=== PATIENT | female | born 1990 | race Caucasian/White ===

== ENCOUNTER 2024-01-17 12:03 | Outpatient (CLI) | payer BC, SELFPAY ==
--- NOTE | 2024-01-17 12:15 | CRLHL7_ITS ---
For Patients: As a result of the Cures Act, medical imaging exams and procedure reports are released immediately into your electronic medical record. You may view this report before your referring provider. If you have questions, please contact your health care provider. INDICATION: First trimester scan, establish dates. COMPARISON: None. TECHNIQUE: Real-time shaikh-scale imaging of the pelvis was performed. FINDINGS: Sonographic imaging demonstrates a single living intrauterine gestation. The embryo demonstrates a regular cardiac rate measuring 180 beats per minute. The embryo`s crown-rump length measurement of 1.6 cm corresponds to a gestational age of 8 weeks 0 days with a sonographic due date of 08/28/2024. There is a normal-appearing yolk sac. There are no gross abnormalities noted within the embryo at this early state of development. The gestational sac has a normal appearance. There is no evidence of a perigestational hemorrhage. The amount of fluid within the sac appears appropriate for gestational age. The cervix is closed. The myometrium appears normal. The ovaries are of normal size. Corpus luteal cyst right ovary. There are no suspicious fluid collections noted in the cul-de-sac. IMPRESSION: Normal first trimester OB ultrasound exam. Gestational age calculated at 8 weeks 0 day with a sonographic due date of 08/28/2024. Dictated by Mickey Biggs MD @ 01/19/2024 7:17:01 PM (Electronically Signed)
== END 2024-01-17 12:04 | disposition home or self-care (01) ==
LOC: US 12:06
PROVIDERS: Visit Provider Physician Assistant
DX: Z34.91 Encounter for supervision of normal pregnancy, unspecified, first trimester (principal); Z3A.08 8 weeks gestation of pregnancy
CPT/HCPCS: 76817; 86592; 86703; 86704; 86706; 86762; 86787; 86803; 86850; 86900; 86901; 87086; 87340; 87491; 87591

== ENCOUNTER 2024-01-17 13:08 | Outpatient (CLI) | payer BC, SELFPAY ==
[2024-01-17 19:37] LABS: Chlamydia DNA Amplified* NOT DETECTED (No Detected); GC DNA Amplified* NOT DETECTED (No Detected)
== END 2024-01-17 13:09 | disposition home or self-care (01) ==
PROVIDERS: Visit Provider Physician Assistant
DX: Z34.91 Encounter for supervision of normal pregnancy, unspecified, first trimester (principal); Z3A.08 8 weeks gestation of pregnancy
CPT/HCPCS: 86592; 86703; 86704; 86706; 86762; 86787; 86803; 86850; 86900; 86901; 87086; 87340; 87491; 87591

== ENCOUNTER 2024-04-11 12:07 | Outpatient (CLI) | payer BC, SELFPAY ==
--- NOTE | 2024-04-11 12:15 | CRLHL7_ITS ---
For Patients: As a result of the Century Cures Act, medical imaging exams and procedure reports are released immediately into your electronic medical record. You may view this report before your referring provider. If you have questions, please contact your health care provider. INDICATION: Evaluate anatomy. COMPARISON: 01/17/2024 TECHNIQUE: Real time shaikh scale imaging of the fetus was performed as well as color Doppler analysis of the umbilical vessels. FINDINGS: Sonographic imaging demonstrates a single living intrauterine gestation. Fetus demonstrates a regular cardiac rate of 147 beats per minute. Fetus has a variable position. The placenta lies posteriorly without evidence of placenta previa. Edge of the placenta located 4.0 cm from the internal cervical os. Amniotic fluid volume appears normal. Single deepest vertical pocket: 4.5 cm. The cervix is closed and measures 3.6 cm in length. The composite ultrasound gestational age is calculated at 20 weeks 6 days with an estimated sonographic due date of 08/23/2024. The estimated weight is 397 grams which lies at the 73rd %. The following biometric measurements were obtained: Biparietal diameter: 4.8 cm/20 weeks 4 days 52nd% Head circumference: 18.0 cm/20 weeks 3 days 36th% Abdominal circumference: 16.1 cm/21 weeks 1 day 65th% Femur length: 3.5 cm/21 weeks 1 day 61st% The HC/AC ratio measures: 1.12 range (1.06-1.25) On anatomic survey, there is a normal appearance of the cerebral ventricles, cavum septi pellucidi, cisterna magna and cerebellum. The nose, lips, and facial profile appear normal. The cervical, thoracic and lumbar spine are well visualized and appear normal. There is a normal four-chamber heart view and the left and right ventricular outflow tracts appear normal. The diaphragm and stomach appear normal. Bilateral renal pelviectasis measures 4 millimeters on the right and 2.6 millimeters on the left. Normal bladder. There is a normal three-vessel cord and cord insertion site. The four extremities appear normal. IMPRESSION: Concordance of clinical and sonographic dating. Right renal pelvis measures 4 millimeters. Left renal pelvis measures 2.6 millimeters. Follow-up 3rd trimester regarding the right renal pelvis recommended. Remainder of the anatomic survey normal. Dictated by Mickey Biggs MD @ 04/13/2024 10:27:01 PM (Electronically Signed)
== END 2024-04-11 12:08 | disposition home or self-care (01) ==
LOC: US 12:08
PROVIDERS: Visit Provider Registered Nurse
DX: Z34.92 Encounter for supervision of normal pregnancy, unspecified, second trimester (principal); Z3A.20 20 weeks gestation of pregnancy
CPT/HCPCS: 76805

== ENCOUNTER 2024-06-02 09:15 | Outpatient (CLI) | payer BC, SELFPAY | END 2024-06-02 09:16 | disposition home or self-care (01) | LOC: NFLDREF 06-04 09:56 | PROVIDERS: Visit Provider Obstetrics & Gynecology | DX: Z34.93 Encounter for supervision of normal pregnancy, unspecified, third trimester (principal); Z3A.28 28 weeks gestation of pregnancy | CPT/HCPCS: 86592 ==

== ENCOUNTER 2024-07-04 10:12 | Outpatient (CLI) | payer BC, SELFPAY ==
--- NOTE | 2024-07-04 10:15 | CRLHL7_ITS ---
For Patients: As a result of the Century Cures Act, medical imaging exams and procedure reports are released immediately into your electronic medical record. You may view this report before your referring provider. If you have questions, please contact your health care provider. INDICATION: Third trimester scan, evaluate growth. Follow-up pelviectasis. COMPARISON: 04/11/2024 TECHNIQUE: Real time shaikh scale imaging of the fetus was performed. FINDINGS: Sonographic imaging demonstrates a single living intrauterine gestation. Fetus demonstrates a regular cardiac rate of 152 beats per minute. Fetus has a vertex position. The placenta lies posteriorly. Amniotic fluid volume appears normal and there is a single deepest vertical pocket: 4.6 cm. The estimated weight is 2289gm which lies at the 80th %. On the prior OB ultrasound exam dated 04/11/2024 the estimated weight was at the 73rd%. BPD 92nd percentile. HC 87th percentile. AC 83rd percentile. FL 50th percentile. The HC/AC ratio measures 1.06 range (0.94-1.11). The right renal pelvis measures 6.8 millimeters. The left renal pelvis measures 7.2 millimeters. Sonographic gestational age 34 weeks 2 days and a sonographic due date of 08/13/2024. Sonographic ages 12 days ahead of the clinical age. IMPRESSION: Bilateral pelviectasis measuring up to 7.2 millimeters. Normal is considered less than 7 millimeters. follow-up recommended. Dictated by Mickey Biggs MD @ 07/04/2024 12:12:13 PM (Electronically Signed)
== END 2024-07-04 10:13 | disposition home or self-care (01) ==
LOC: US 10:13
PROVIDERS: Visit Provider Obstetrics & Gynecology
DX: O35.EXX0 Maternal care for other (suspected) fetal abnormality and damage, fetal genitourinary anomalies, not applicable or unspecified (principal); O36.63X0 Maternal care for excessive fetal growth, third trimester, not applicable or unspecified; Z3A.34 34 weeks gestation of pregnancy
CPT/HCPCS: 76816

== ENCOUNTER 2024-08-01 09:40 | Outpatient (CLI) | payer BC, SELFPAY ==
[2024-08-02 13:08] LABS: Strep B DNA Probe Negative (Negative)
[2024-08-02 13:22] LABS: Strep B Susceptibility Needed? No
== END 2024-08-01 09:41 | disposition home or self-care (01) ==
LOC: NFLDREF 09:40
PROVIDERS: Visit Provider Obstetrics & Gynecology
DX: Z34.93 Encounter for supervision of normal pregnancy, unspecified, third trimester (principal); Z3A.36 36 weeks gestation of pregnancy
CPT/HCPCS: 87081; 87653

== ENCOUNTER 2024-08-28 15:53 | Inpatient (IN) | payer BC, SELFPAY ==
[2024-08-28] VITALS (7 sets, daily range): BP systolic 121–137; BP diastolic 73–88; PULSE 65–86; RESP 16; TEMP 36.5–36.9; O2SAT 97–98; BMI 36.8
--- NOTE | 2024-08-28 16:51 | W.PM.LDBA ---
Subjective History of Present Illness Date Seen: 08/28/24 Narrative: Patient is being admitted to Labor and Delivery for elective IOL. She is a 34 year old at 40 3/7 weeks gestation. Her full history and physical was dictated by Dr. Rodríguez on 08/07/24. Please see this for details. Today patient states to be doing well w/o any new concerns or complaints. Specific Issues/Plans : Eric Baby boy: Masood?? [id number]: negative #Mild pyelectasis - Right Renal Pelvis 4 mm on FAS - 32 week repeat: Left renal pelvis mildly dilated at 7.2mm (7 is normal) and 6.8mm on R - assessment recommended Flu: declined Covid: declined Tdap: 06/20/24 RSV:07/18/24 GBS: negative 08/01/24 H&P: Anne 08/07 OB - Problem Based A/P Additional Plan (1) and not yet delivered: Status: Acute Plan 1. IOL started with placement of first dose of vaginal Cytotec. Will continue management per protocol. 2. Continuous monitoring. 3. GBS negative, no need for antibiotic prophylaxis. 4. Candidate for pain management as needed. 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
[2024-08-28] MEDS: miSOPROStoL 25 MCG/0.25 TABLET VAGINAL ×3 (17:00→23:28)
[2024-08-28 17:20] LABS: Basophils Absolute Auto 0.03 K/uL (0.00-0.30); Basophils Percent Auto 0.3 % (0.0-3.0); Eosinophils Absolute Auto 0.11 K/uL (0.00-0.50); Hematocrit 41.2 % (33.0-51.0); Hemoglobin* 13.8 gm/dL (12.0-16.0); Immature Granulocytes Abs Auto 0.02 K/uL (0.00-0.30); Immature Granulocytes Pct Auto 0.2 %; Lymphocytes Percent Auto 17.4 % (20-44); Mean Corpuscular HGB Conc 34 gm/dL (32-36); Mean Corpuscular Hemoglobin 31 pg (26-34); Mean Corpuscular Volume 93 fL (80-100); Monocytes Percent Auto 10.6 % (0.0-11.0); Neutrophils Absolute Auto 7.41 K/uL (1.7-7.0); Neutrophils Percent Auto 70.5 % (42.0-72.0); Platelet Count* 259 K/uL (140-440); RDW Coefficient of Variation % 12.4 % (11.5-15.5); Red Blood Count 4.45 m/uL (4.00-5.20); White Blood Count* 10.51 K/uL (4.50-11.00)
[2024-08-28 17:22] LABS: Slide Review Reflex No
[2024-08-29] VITALS (91 sets, daily range): BP systolic 110–149; BP diastolic 57–98; PULSE 60–110; RESP 16–20; TEMP 36.4–37.1; O2SAT 92–100
[2024-08-29] MEDS: LACTATED RINGERS 500 ML 500 ML IV (01:01)
[2024-08-29] MEDS: TERBUTALINE 1 MG/ML INJ 0.25 MG SUBCUT ×2 (01:47→04:21)
[2024-08-29] MEDS: LACTATED RINGERS 500 ML 500 ML 1000 ML IV (01:54)
[2024-08-29] MEDS: LACTATED RINGERS 1000 ML 1,000 ML 250 ML IV (03:53)
[2024-08-29] MEDS: LACTATED RINGERS 1000 ML 1,000 ML 125 ML IV (06:07)
[2024-08-29] MEDS: OXYTOCIN 30 unit/500 ML in NS 30 UNIT/500 ML BAG IVPB (07:35)
--- NOTE | 2024-08-29 09:17 | PM.OBPNL ---
Subjective Time Seen by Provider: 08:15 Date Seen: 08/29/24 Narrative: S: Feeling some contractions with the Pitocin at 2 milliunits /minute. Verbal consent obtained for AROM and placement of scalp electrode and intrauterine pressure catheter. The patient received 3 doses of Cytotec and then had tachy systole with some heart rate late decelerations which was treated with 2 doses of terbutaline. Since the 2 doses of terbutaline the heart monitor tracing has reverted to category 1 and contractions decreased to every 4-6 minutes. Pitocin was started at 2 milliunits/minute at approximately 7:30 a.m. there were 3 late -appearing heart rate decelerations at around 8:00 a.m. which resolved spontaneously. Reviewed that if late decelerations became persistent/recurrent then I would recommend a delivery. The patient and her spouse, Eric stated their understanding and questions answered. Objective Exam: General: Pleasant, , well groomed woman in no acute distress. Vital signs: Included in her electronic medical record. External monitor: Baseline 130s. Accelerations: Present. Decelerations 1 variable deceleration lasting 1 minute at approximately 9:00 a.m. and 3 late-appearing decelerations at approximately 8:00 a.m. scalp electrode placed with acceleration in the heart rate to greater than 150 beats per minute with placement of the FSE. [place]: Q 2 minutes. IUPC Placed. Extremities: 2+ edema. 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 Plan Plan: 1. if decelerations become recurrent/persistent. 2. IUPC and FSE place. 3. Pitocin off after variable deceleration.
[2024-08-29] MEDS: ONDANSETRON 2 MG/ML inj 4 MG IV (09:27)
--- NOTE | 2024-08-29 09:35 | PM.OBPNL ---
Subjective Time Seen by Provider: 09:35 Date Seen: 08/29/24 Narrative: Subjective: The patient is uncomfortable with contractions, requesting an epidural and reporting significant increase in rectal pressure. Pitocin turned off 9:00 a.m. due to a deep variable deceleration to the 90s for 1 minute. Vital signs: Per electronic medical record. EFM: Baseline 130s, positive accelerations, 1 early deceleration at 9:33 a.m., moderate variability, reactive. Category 2. IUPC: Contractions every 2-4 minutes > 180 Broxton units in 10 minutes. SVE: 4 cm/80 %/-2. Assessment: 34-year-old 1 para 0 at 40 weeks 4 days gestation undergoing elective induction of labor. Plan: 1. Restart Pitocin 1 milliunits/minute after the epidural is placed and the heart rate remains reassuring. 2. Getting epidural currently for labor analgesia. 3. GBS negative 4. Blood type: O positive, antibody screen negative. Objective Vital Signs: Last Vital Signs Temp 97.6 F 08/29/24 07:29 Pulse 78 08/29/24 08:21 Resp 16 08/29/24 07:29 BP 120/70 08/29/24 08:21 Pulse Ox 98 08/29/24 09:10 Pelvic Exam Dilation (cm): 4 Effacement (%): 70 Station: -2 Assessment Station: -2 Amniotic Membrane Status: AROM Status: Category ll Heart Rate Baseline: 135 Monitor Accelerations: Present Monitor Decelerations: Late
[2024-08-29] MEDS: LIDOCAINE 2% (PF) 5 ML VIAL EPIDURAL (09:36)
[2024-08-29] MEDS: ROPIVACAINE 0.2% 100 ml 100 ML 12 MG EPIDURAL (10:25)
[2024-08-29 10:56] LABS: Hematocrit 38.6 % (33.0-51.0); Hemoglobin* 12.9 gm/dL (12.0-16.0); Mean Corpuscular HGB Conc 33 gm/dL (32-36); Mean Corpuscular Hemoglobin 32 pg (26-34); Mean Corpuscular Volume 94 fL (80-100); Platelet Count* 228 K/uL (140-440); White Blood Count* 11.55 K/uL (4.50-11.00)
[2024-08-29 10:59] LABS: Slide Review Reflex No
--- NOTE | 2024-08-29 11:03 | PM.ANBPRC ---
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 Marital status: . Sikhism/cultural needs: no. Chemical or radiation exposure: no. Pre- tobacco use: no. Pre- alcohol use: 1-2 drinks per week. Current tobacco use: no. Current alcohol use: no. Recreational drug use: no. Dietary restrictions: no. Blood transfusion acceptable in an emergency: yes. PSYCHOSOCIAL HISTORY: History of depression or currently depressed: no. Current or past physical, emotional, or sexual mistreatment: no. Problems that will make it hard to make it to appointments: no. What is your current living situation?: I presently have a place to live Problems where you live: no known problems In the past 12 months, utilities in danger of being shut off: no In past 12 months, lack of transportation kept you from medical appts, meetings, work, or getting things needed for daily living: no In the past 12 mos, have been you worried that your food would run out before you had money to buy more?: never true In the past 12 mos, the food you bought just didn't last and you didn't have money to buy more?: never true Smoking Status: Never smoker How often does anyone, including family, friends and others, physically hurt you: never How often does anyone, including family, friends and others, insult or talk down to you: never How often does anyone, including family, friends and others, threaten you with harm: never How often does anyone, including family, friends and others, scream or curse at you: never Meds Home Medications and Allergies Home Medications ?Medication ?Instructions ?Recorded ?Confirmed ?Type SNT-tmus-SI-omega 3-fat com #1 27 1 cap PO DAILY 01/17/24 08/28/24 History mg-1 mg-300 mg capsule Allergies Allergy/AdvReac Type Severity Reaction Status Date / Time No Known Drug Allergies Allergy Verified 08/26/24 09:03 Results Labs Labs: Laboratory Results - last 24 hr 08/28/24 08/29/24 17:13 10:43 WBC 10.51 11.55 H RBC 4.45 4.10 Hgb 13.8 12.9 Hct 41.2 38.6 MCV 93 94 MCH 31 32 MCHC 34 33 RDW Coeff of Cristina 12.4 Plt Count 259 228 Neut % (Auto) 70.5 Lymph % (Auto) 17.4 L [place] % (Auto) 10.6 Eos % (Auto) 1.0 Baso % (Auto) 0.3 Neut # (Auto) 7.41 H Lymph # (Auto) 1.80 [place] # (Auto) 1.10 H Eos # (Auto) 0.11 Baso # (Auto) 0.03 Abs Immat Gran (auto) 0.02 Imm/Tot Granulo (auto) 0.2 Blood Type O Positive Antibody Screen NEGATIVE Vital Signs Vital Signs: Last Vital Signs Temp 98 F 08/29/24 10:43 Pulse 77 08/29/24 10:57 Resp 18 08/29/24 10:43 BP 116/62 08/29/24 10:57 Pulse Ox 99 08/29/24 11:00 Weight: 97.211 kg Height: 162.56 cm Anesthesia Procedures Epidural Insertion Patient Location: OB Start Time: 09:30 Stop Time: 10:30 Start Date: 08/29/24 Stop Date: 08/29/24 Reason for Block: procedure for pain Patient Position: sitting Performed By: Torie Pabon Preanesthetic Checklist: IV checked, site marked, risks and benefits discussed, monitors and equipment checked, pre-op evaluation, timeout performed and anesthesia consent Prep: chlorhexidine gluconate Monitoring: blood pressure monitoring, continuous pulse oximetry and heart rate Approach: midline Vertebral Space: lumbar (1-5) Epidural Technique: KYLIE saline Needle Type: Tuohy needle Needle gauge: 17 Needle Length (cm): 10 cm Needle Insertion Depth (cm): 7 Catheter Gauge: 19 Catheter Type: multi-orifice Catheter at skin depth (cm): 17 Test Dose Result: negative and lidocaine 1.5% with epinephrine 1 to 200,000
[2024-08-29 11:06] LABS: Aspartate Amino Transferase* 17 U/L (12-35); Creatinine* 0.6 mg/dL (0.5-1.5); Est. Creatinine Clearance* 116.24; Estimated Glomerular Filt Rate 122 ml/min
[2024-08-29 11:07] LABS: Alanine Aminotransferase* 18 U/L (4-35); Blood Urea Nitrogen* 7 mg/dL (5-24)
[2024-08-29 11:09] LABS: Basophils Absolute Auto 0.03 K/uL (0.00-0.30); Basophils Percent Auto 0.3 % (0.0-3.0); Eosinophils Absolute Auto 0.02 K/uL (0.00-0.50); Eosinophils Percent Auto 0.2 % (0.0-7.0); Immature Granulocytes Abs Auto 0.03 K/uL (0.00-0.30); Immature Granulocytes Pct Auto 0.3 %; Lymphocytes Percent Auto 10.8 % (20-44); Monocytes Percent Auto 8.7 % (0.0-11.0); Neutrophils Percent Auto 79.7 % (42.0-72.0); RDW Coefficient of Variation % 12.4 % (11.5-15.5)
[2024-08-29] MEDS: fentaNYL 100 MCG/2 ML inj EPIDURAL (11:23)
[2024-08-29 12:45] LABS: Protein Creatinine Ratio Urine 0.13 (0-0.19); Total Protein Urine 7 mg/dL
--- NOTE | 2024-08-29 14:30 | W.PM.OBVAGDE ---
OB Procedure Vag Delivery Mother Details Mother Details: The patient is a 34 year-old, 1, Para 0, admitted on 08/28/24 for an elective IOL at 40w3d gestation. : 1 Para: 0 Weeks Gestation: 40 Admission Date: 08/28/24 Additional Details Amniotic Membrane Status: AROM Amniotic Membrane Rupture Date: 08/29/24 Amniotic Membrane Rupture Time: 08:34 Amniotic Membrane Fluid Description: Clear Analgesia/Anesthesia Type: Epidural and Local Waterbirth: No Pitcoin: Yes Intrapartal Events: Labor Induction and Anesthesia Complications (Epidural did not work. Patient declined replacement. ) Induction Method: per misoprostol protocol, per pitocin protocol and AROM Labor Onset: 09:30 Complete: 13:10 Pushin:15 Heart: heart tones during second stage were had variable decelerations to the 90s to 100s for the 1st 2 pushes 10 the heart rate went to the 80s and did not return back to baseline. Verbal consent was obtained for performing a vacuum assisted vaginal delivery. Risks of the a vacuum included and were reviewed with the patient: Extensive vaginal/perineal lacerations, injury to the 's scalp or head, subgaleal hematoma. The patient's Santos catheter, scalp electrode and IUPC were removed. Delivery Details Delivery Date: 08/29/24 Delivery Time: 13:28 Route of delivery: vacuum extraction Infant Gender: Male Viability: Alive; Heart Rate Present Position at Delivery: OA Delivery Details: The patient was placed in the dorsal lithotomy position. The kiwi mushroom vacuum was placed 2-3 cm superior to the posterior fontanelle and the pressure pumped to the yellow line. The vacuum was applied at 13:20 and the infant delivered at 1:28 p.m. With contractions the pressure was increased to the green area and gentle traction was placed on the vacuum. One pop-off occurred. There were 2 pulls and the 's head was delivered. The vacuum was then removed and the remainder of the delivered atraumatically. The 's cord was clamped and cut immediately and the infant handed to waiting pediatric staff. Umbilical Cord gases were sent. There were no nuchal cords. The placenta appeared normal on gross examination. Apgars: 6 at 1 and 9 at 5 minutes, respectively. There were 3 vaginal lacerations. Second-degree right vaginal/perineal. Bilateral first-degree periurethral lacerations. Weight: 7#11oz. Name: Masood Pacheco. Lacerations: The second-degree perineal laceration was repaired in the usual manner using 3-0 Vicryl. The periurethral lacerations were repaired in a running manner with 4-0 Vicryl suture. One figure of 8 suture was placed on the perineum using 4-0 Vicryl and 1 figure of 8 suture was placed on the lower apex of the right periurethral laceration using 4-0 Vicryl suture to obtain hemostasis. Cord gases: Arterial pH 7.13, arterial pCO2 73 mmHg, arterial bicarb 24 mmol/L, arterial base excess -7.3 mmol/L Venous ph: 7.20, venous pCO2 61mmHG, venous bicarb 24 mmol/L, venous base excess -6.2 mmol/L 1 Minute Interval Total Score: 6 5 Minute Interval Total Score: 9 Additional Details Shoulder Dystocia: No Placenta Delivery Time: 13:35 Placental Delivery Description: Spontaneous Delivery repair: Vicryl Blood Loss: 250 Laceration: Perineal - 2nd Degree Blood Loss Measurement Type: QBL Bakri Used: No Sponge/Need Count Correct: Yes Cord Vessel Description: 3 Vessels Indication for instrumentation: nonreassuring FHR tracing Event Summary Status: Mother and were stable after delivery. Disposition: floor
[2024-08-29] MEDS: IBUPROFEN 600 MG TABLET PO (15:15)
[2024-08-29] MEDS: ACETAMINOPHEN 500 MG TABLET 1000 MG PO (19:17)
[2024-08-29 20:30] LABS: Hematocrit 35.4 % (33.0-51.0); Mean Corpuscular HGB Conc 34 gm/dL (32-36); Mean Corpuscular Hemoglobin 32 pg (26-34); Mean Corpuscular Volume 94 fL (80-100); Platelet Count* 234 K/uL (140-440); Red Blood Count 3.77 m/uL (4.00-5.20); White Blood Count* 15.51 K/uL (4.50-11.00)
[2024-08-29 20:31] LABS: Slide Review Reflex No
[2024-08-29] MEDS: NIFEdipine 30 MG TAB.ER.24 PO (20:39)
[2024-08-29 20:52] LABS: Creatinine* 0.7 mg/dL (0.5-1.5); Est. Creatinine Clearance* 99.63; Estimated Glomerular Filt Rate 118 ml/min
[2024-08-29 20:53] LABS: Alanine Aminotransferase* 19 U/L (4-35); Aspartate Amino Transferase* 31 U/L (12-35); Blood Urea Nitrogen* 10 mg/dL (5-24)
[2024-08-30] MEDS: ACETAMINOPHEN 500 MG TABLET 1000 MG PO ×3 (00:49→15:26)
[2024-08-30 00:59] VITALS: BP 121/78; PULSE 102; RESP 18; TEMP 36.8
[2024-08-30] MEDS: IBUPROFEN 600 MG TABLET PO ×3 (04:45→19:50)
[2024-08-30 05:05] VITALS: BP 125/80; PULSE 99; RESP 18; TEMP 36.7
[2024-08-30 06:56] LABS: Hematocrit 35.7 % (33.0-51.0); Hemoglobin* 11.8 gm/dL (12.0-16.0); Mean Corpuscular HGB Conc 33 gm/dL (32-36); Mean Corpuscular Hemoglobin 31 pg (26-34); Mean Corpuscular Volume 94 fL (80-100); Platelet Count* 208 K/uL (140-440); Red Blood Count 3.78 m/uL (4.00-5.20); White Blood Count* 12.33 K/uL (4.50-11.00)
[2024-08-30 07:00] LABS: Slide Review Reflex No
[2024-08-30 07:23] LABS: Aspartate Amino Transferase* 29 U/L (12-35); Creatinine* 0.7 mg/dL (0.5-1.5); Est. Creatinine Clearance* 99.63; Estimated Glomerular Filt Rate 118 ml/min
[2024-08-30 07:24] LABS: Alanine Aminotransferase* 19 U/L (4-35); Blood Urea Nitrogen* 8 mg/dL (5-24)
--- NOTE | 2024-08-30 08:04 | PM.ANPOST ---
Post Anesthesia Note Post Anesthesia Note Patient seen: Inpatient Respiratory Status: adequate Cardiovascular Status: adequate Mental Status: baseline Pain: adequate Temp: baseline Anesthetic awareness: N/A Complications: none Follow care: none
[2024-08-30 08:28] VITALS: BP 129/83; PULSE 87; RESP 16; TEMP 36.7; O2SAT 97
--- NOTE | 2024-08-30 08:55 | PM.OBPNVD1 ---
OB - PN:Subj Subjective Date Seen: 08/30/24 Interval history: Becky is a 34-year-old G1 now P 1-0-0-1 woman status post vacuum assisted vaginal delivery for indication of nonreassuring status on 08/29/2024 at 40 weeks, 4 days gestation. She had a second-degree perineal laceration and periurethral lacerations. She developed mildly elevated blood pressures during her labor course. HELLP labs were normal. She was started on nifedipine ER 30 mg q.h.s. Narrative: Becky has no complaints. She is ambulating and urinating without difficulty. No heavy bleeding. She is feeding her , Masood, with a combination of expressed breast milk and formula. OB - PN: Obj Exam Physical Exam: Vital signs: Temp Pulse Resp BP Pulse Ox O2 Del Method 98.0 F 87 16 129/83 97 Room Air 08/30/24 08:28 08/30/24 08:28 08/30/24 08:28 08/30/24 08:28 08/30/24 08:28 08/30/24 08:28 Narrative: General: Pleasant, no acute distress Heart: Regular rate and rhythm, no murmur or gallop Lungs: Clear to auscultation bilaterally Abdomen: Soft, nontender, fundus well below umbilicus Lower extremities: 2+ edema bilaterally, no erythema OB - PN: Obj Data Labs Labs: Laboratory Results - last 24 hr 08/29/24 08/29/24 08/29/24 10:29 10:43 10:43 WBC 11.55 H Cancelled Corrected WBC Cancelled RBC 4.10 Hgb Hct MCV MCH MCHC RDW Coeff of Cristina Plt Count Neut % (Auto) Lymph % (Auto) [place] % (Auto) Eos % (Auto) Baso % (Auto) Neut # (Auto) Lymph # (Auto) [place] # (Auto) Eos # (Auto) Baso # (Auto) Abs Immat Gran (auto) Imm/Tot Granulo (auto) BUN Creatinine Estimated Creat Clear Estimated GFR AST ALT Urine Creatinine 55.0 Protein/Creatinin Ratio 0.13 Urine Total Protein 7 08/29/24 08/29/24 08/29/24 10:43 10:43 10:43 WBC Corrected WBC RBC Cancelled Hgb 12.9 Cancelled Hct 38.6 Cancelled MCV 94 MCH MCHC RDW Coeff of [place] Plt Count Neut % (Auto) Lymph % (Auto) [place] % (Auto) Eos % (Auto) Baso % (Auto) Neut # (Auto) Lymph # (Auto) [place] # (Auto) Eos # (Auto) Baso # (Auto) Abs Immat Gran (auto) Imm/Tot Granulo (auto) BUN Creatinine Estimated Creat Clear Estimated GFR AST ALT Urine Creatinine Protein/Creatinin Ratio Urine Total Protein 08/29/24 08/29/24 08/29/24 10:43 10:43 10:43 WBC Corrected WBC RBC Hgb Hct MCV Cancelled MCH 32 Cancelled MCHC 33 Cancelled RDW Coeff of Cristina 12.4 Plt Count Neut % (Auto) Lymph % (Auto) [place] % (Auto) Eos % (Auto) Baso % (Auto) Neut # (Auto) Lymph # (Auto) [place] # (Auto) Eos # (Auto) Baso # (Auto) Abs Immat Gran (auto) Imm/Tot Granulo (auto) BUN Creatinine Estimated Creat Clear Estimated GFR AST ALT Urine Creatinine Protein/Creatinin Ratio Urine Total Protein 08/29/24 08/29/24 08/29/24 10:43 10:43 10:43 WBC Corrected WBC RBC Hgb Hct MCV MCH MCHC RDW Coeff of Cristina Cancelled Plt Count 228 Cancelled Neut % (Auto) 79.7 H Cancelled Lymph % (Auto) 10.8 L [place] % (Auto) Eos % (Auto) Baso % (Auto) Neut # (Auto) Lymph # (Auto) [place] # (Auto) Eos # (Auto) Baso # (Auto) Abs Immat Gran (auto) Imm/Tot Granulo (auto) BUN Creatinine Estimated Creat Clear Estimated GFR AST ALT Urine Creatinine Protein/Creatinin Ratio Urine Total Protein 08/29/24 08/29/24 08/29/24 10:43 10:43 10:43 WBC Corrected WBC RBC Hgb Hct MCV MCH MCHC RDW Coeff of Cristina Plt Count Neut % (Auto) Lymph % (Auto) Cancelled [place] % (Auto) 8.7 Cancelled Eos % (Auto) 0.2 Cancelled Baso % (Auto) 0.3 Neut # (Auto) Lymph # (Auto) [place] # (Auto) Eos # (Auto) Baso # (Auto) Abs Immat Gran (auto) Imm/Tot Granulo (auto) BUN Creatinine Estimated Creat Clear Estimated GFR AST ALT Urine Creatinine Protein/Creatinin Ratio Urine Total Protein 08/29/24 08/29/24 08/29/24 10:43 10:43 10:43 WBC Corrected WBC RBC Hgb Hct MCV MCH MCHC RDW Coeff of Cristina Plt Count Neut % (Auto) Lymph % (Auto) [place] % (Auto) Eos % (Auto) Baso % (Auto) Cancelled Neut # (Auto) 9.20 H Cancelled Lymph # (Auto) 1.20 Cancelled [place] # (Auto) 1.00 H Eos # (Auto) Baso # (Auto) Abs Immat Gran (auto) Imm/Tot Granulo (auto) BUN Creatinine Estimated Creat Clear Estimated GFR AST ALT Urine Creatinine Protein/Creatinin Ratio Urine Total Protein 08/29/24 08/29/24 08/29/24 10:43 10:43 10:43 WBC Corrected WBC RBC Hgb Hct MCV MCH MCHC RDW Coeff of Cristina Plt Count Neut % (Auto) Lymph % (Auto) [place] % (Auto) Eos % (Auto) Baso % (Auto) Neut # (Auto) Lymph # (Auto) [place] # (Auto) Cancelled Eos # (Auto) 0.02 Cancelled Baso # (Auto) 0.03 Cancelled Abs Immat Gran (auto) 0.03 Imm/Tot Granulo (auto) BUN Creatinine Estimated Creat Clear Estimated GFR AST ALT Urine Creatinine Protein/Creatinin Ratio Urine Total Protein 08/29/24 08/29/24 08/29/24 10:43 10:43 20:10 WBC 15.51 H Corrected WBC RBC 3.77 L Hgb 12.0 Hct 35.4 MCV 94 MCH 32 MCHC 34 RDW Coeff of Cristina Plt Count 234 Neut % (Auto) Lymph % (Auto) [place] % (Auto) Eos % (Auto) Baso % (Auto) Neut # (Auto) Lymph # (Auto) [place] # (Auto) Eos # (Auto) Baso # (Auto) Abs Immat Gran (auto) Cancelled Imm/Tot Granulo (auto) 0.3 Cancelled BUN 7 10 Creatinine 0.6 0.7 Estimated Creat Clear 116.24 99.63 Estimated GFR 122 118 AST 17 31 ALT 18 19 Urine Creatinine Protein/Creatinin Ratio Urine Total Protein 08/30/24 06:36 WBC 12.33 H Corrected WBC RBC 3.78 L Hgb 11.8 L Hct 35.7 MCV 94 MCH 31 MCHC 33 RDW Coeff of Cristina Plt Count 208 Neut % (Auto) Lymph % (Auto) [place] % (Auto) Eos % (Auto) Baso % (Auto) Neut # (Auto) Lymph # (Auto) [place] # (Auto) Eos # (Auto) Baso # (Auto) Abs Immat Gran (auto) Imm/Tot Granulo (auto) BUN 8 Creatinine 0.7 Estimated Creat Clear 99.63 Estimated GFR 118 AST 29 ALT 19 Urine Creatinine Protein/Creatinin Ratio Urine Total Protein OB - PN: A/P Delivery Assessment and Plan (1) Vacuum-assisted vaginal delivery: Status: Acute Assessment and Plan: Appropriate course (2) Second degree perineal laceration: Status: Acute (3) Gestational hypertension: Status: Acute Assessment and Plan: Currently adequately controlled on nifedipine ER 30 mg q.h.s.. Continue to monitor every 4 hours. Plan day: 1 Comments: Anticipate discharge tomorrow or Sunday depending on blood pressures.
[2024-08-30] MEDS: DOCUSATE SODIUM 100 MG CAPSULE PO (12:06)
[2024-08-30 12:10] VITALS: BP 113/78; PULSE 81; RESP 18; TEMP 36.6; O2SAT 96
[2024-08-30 16:03] VITALS: BP 127/90; PULSE 90; RESP 18; TEMP 36.4; O2SAT 97
[2024-08-30 19:41] VITALS: BP 135/84; PULSE 77; RESP 18; TEMP 36.7; O2SAT 97
[2024-08-30] MEDS: NIFEdipine 30 MG TAB.ER.24 PO (21:01)
[2024-08-30 23:02] LABS: Rapid Plasma Reagin (RPR) Non Reactive (Non Reactive)
[2024-08-31] VITALS: BP 124/77; PULSE 84; RESP 18; TEMP 36.5; O2SAT 96
[2024-08-31 04:47] VITALS: BP 138/88; PULSE 83; RESP 18; TEMP 36.8; O2SAT 96
[2024-08-31] MEDS: IBUPROFEN 600 MG TABLET PO ×2 (04:54→11:29)
[2024-08-31 07:53] VITALS: BP 125/78; PULSE 79; RESP 16; TEMP 36.7; O2SAT 96
[2024-08-31] MEDS: ACETAMINOPHEN 500 MG TABLET 1000 MG PO (08:03)
[2024-08-31] MEDS: DOCUSATE SODIUM 100 MG CAPSULE PO (08:04)
--- NOTE | 2024-08-31 08:58 | P.DS_ITS ---
DS: Providers Provider Date Seen: 08/31/24 Date of admission: 08/28/24 15:53 Primary care physician: Not a Local Provider Admitting Clinician: Lula Brewer MD Attending Physician on discharge: Vi Hairston MD Date of Discharge: 08/31/24 DS: Diagnosis Discharge Diagnosis (1) Gestational hypertension: Status: Acute (2) Lactating mother: Status: Acute (3) Second degree perineal laceration: Status: Acute (4) Vacuum-assisted vaginal delivery: Status: Acute Exam Narrative: Exam Narrative: General: Pleasant, no acute distress Heart: Regular rate and rhythm, no murmur or gallop Lungs: Clear to auscultation bilaterally Abdomen: Soft, nontender, fundus well below umbilicus Lower extremities: Trace bilateral edema, no erythema Const: Vital Signs, click to edit/add: Vital Signs - 24 hr 08/30/24 12:10 08/30/24 16:03 08/30/24 19:41 Temperature 97.8 F 97.6 F 98.1 F Pulse Rate [Pulse Oximeter] 81 90 77 Respiratory Rate 18 18 18 Blood Pressure [Le ft Arm] 113/78 127/90 H 135/84 Pulse Oximetry 96 97 97 Oxygen Delivery Me thod Room Air Room Air Room Air 08/31/24 00:00 08/31/24 04:47 08/31/24 07:53 Temperature 97.7 F 98.3 F 98.1 F Pulse Rate [Pulse Oximeter] 84 83 79 Respiratory Rate 18 18 16 Blood Pressure [Le ft Arm] 124/77 138/88 125/78 Pulse Oximetry 96 96 96 Oxygen Delivery Me thod Room Air Room Air Room Air OB - DS: Summary Hospital Course Hospital Course: Becky is a 34-year-old G1 now P 1-0-0-1 woman status post vacuum assisted vaginal delivery for indication of nonreassuring status on 08/29/2024 at 40 weeks, 4 days gestation. She had a second-degree perineal laceration and periurethral lacerations. She developed mildly elevated blood pressures during her labor course. HELLP labs were normal. She was started on nifedipine ER 30 mg q.h.s. Today, on day #2, Becky has no complaints. She is ambulating and urinating without difficulty. No heavy bleeding. She is feeding her infant, Masood, with a combination of expressed breast milk and formula. Her highest BPs in last 24 hours have been 127 / 90, 138 / 88. HELLP labs were normal yesterday. Infant Gender: Male Time Spent with Patient Time attestation: Total time spent providing and/or coordinating discharge services: Discharge Plan Discharge Disposition: Home, Self-Care Date of Admission: 08/28/24 15:53 Attending Provider on Discharge: Vi Hairston Primary Care Provider: Provider,Not a Local Condition: Stable Anticipated Discharge Date/Time: 08/31/24 09:15 Discharge Medications: New acetaminophen 500 mg Tablet 1,000 mg PO Q6H PRNQty: 0 0RF docusate sodium 100 mg Capsule 100 mg PO BID PRNQty: 0 0RF ibuprofen 600 mg Tablet 600 mg PO Q6H PRNQty: 0 0RF Lanolin (HPA) 100 % Cream 1 applic topical Q1H PRNQty: 0 0RF nifedipine 30 mg Tablet Extended Release 24hr 30 mg PO HS Qty: 30 0RF Continued [id number] 3-fat com #1 27-1-300 mg capsule 1 cap PO DAILY Discharge Orders: Discharge Order (Routine); Ordered 08/31/24 Ordered By: Vi Hairston Patient Education: OB High Blood Pressure DC, OB Vaginal/Breast Feeding Activity Detail: Nothing per vaginal for 6 weeks Discharge Diet: Regular Follow Up Appointments: Provider,Not a Local [Primary Care Provider] - Vi Hairston MD [Staff Physician] - Forms: [employer] Info Instructions
== END 2024-08-31 12:15 | disposition home or self-care (01) | DRG 560 ==
PROVIDERS: Obstetrics & Gynecology; Admitting Provider Obstetrics & Gynecology; Visit Provider Obstetrics & Gynecology
DX: O48.0 Post-term pregnancy (principal); O76 Abnormality in fetal heart rate and rhythm complicating labor and delivery; O13.4 Gestational [pregnancy-induced] hypertension without significant proteinuria, complicating childbirth; O70.1 Second degree perineal laceration during delivery; O70.0 First degree perineal laceration during delivery; O71.82 Other specified trauma to perineum and vulva; Z37.0 Single live birth; Z3A.40 40 weeks gestation of pregnancy
CPT/HCPCS: 01967; 36415; 59200; 82565; 82570; 84156; 84450; 84460; 84520; 85025; 85027; 86592; 86850; 86900; 86901; A9270; J2371; J2405; J2795; J3010; J3105; J7120

== ENCOUNTER 2024-10-10 11:17 | Outpatient (CLI) | payer BC, SELFPAY | END 2024-10-10 11:18 | disposition home or self-care (01) | LOC: NFLDREF 11:18 | PROVIDERS: Visit Provider Registered Nurse | DX: E04.9 Nontoxic goiter, unspecified (principal) | CPT/HCPCS: 84443 ==

== ENCOUNTER 2024-10-16 10:12 | Outpatient (CLI) | payer BC, SELFPAY ==
--- NOTE | 2024-10-16 10:15 | CRLHL7_ITS ---
For Patients: As a result of the Century Cures Act, medical imaging exams and procedure reports are released immediately into your electronic medical record. You may view this report before your referring provider. If you have questions, please contact your health care provider. INDICATION: Goiter TECHNIQUE: Ultrasound thyroid with shaikh-scale and color Doppler analysis. COMPARISON: No comparison FINDINGS: The thyroid gland demonstrates normal uniform echogenicity and smooth contour. Right lobe: Measures 4.7 x 1.3 x 1.5 cm. No nodules, masses, or suspicious calcifications. Color Doppler analysis demonstrates normal vascularity. Left lobe: Measures 5.1 x 1.3 x 1.4 cm. No nodules, masses, or suspicious calcifications. Color Doppler analysis demonstrates normal vascularity. The isthmus is normal. No lymphadenopathy or parathyroid mass. IMPRESSION: Unremarkable thyroid ultrasound. Dictated by Jonah Owusu MD @ 10/16/2024 3:41:28 PM (Electronically Signed)
== END 2024-10-16 10:13 | disposition home or self-care (01) ==
LOC: US 10:12
PROVIDERS: Visit Provider Registered Nurse
DX: E04.9 Nontoxic goiter, unspecified (principal)
CPT/HCPCS: 76536